=== PATIENT | female | born 1955 | race Caucasian/White ===

== ENCOUNTER 2016-12-10 19:12 | Emergency (ER) | payer BC, OTHER ==
[~2016-12-10] VITALS: Ht 167.6 cm; Wt 90.7 kg
[2016-12-10 19:31] VITALS: BP 135/99
[2016-12-10] MEDS ORDERED: IBUPROFEN 600 MG TAB PO ONE ×2 (20:45)
== END 2016-12-10 21:07 | disposition home or self-care (01) ==
LOC: ER 19:16
DX: S63.501A Unspecified sprain of right wrist, initial encounter (principal); S60.221A Contusion of right hand, initial encounter; V49.9XXA Car occupant (driver) (passenger) injured in unspecified traffic accident, initial encounter; Y93.89 Activity, other specified; Y99.8 Other external cause status; Y92.89 Other specified places as the place of occurrence of the external cause
CPT/HCPCS: 73110; 73130